=== PATIENT | female | born 1980 | race Caucasian/White ===

== ENCOUNTER 2020-07-01 15:50 | Inpatient (IN) | payer OTHER ==
[~2020-07-01] VITALS: Ht 167.6 cm; Wt 81.3 kg
[2020-07-01] MEDS ORDERED: ONDANSETRON HCL 4 MG/2 ML VIAL IVP PRN (17:15)
[2020-07-01] MEDS ORDERED: LORazepam 2 MG/ML VIAL IVP PRN (17:15)
[2020-07-01] MEDS ORDERED: ZOLPIDEM TARTRATE 5 MG TABLET PO PRN (17:15)
[2020-07-01] MEDS ORDERED: ACETAMINOPHEN 325 MG TABLET PO PRN (17:15)
[2020-07-01] MEDS ORDERED: SODIUM CHLORIDE 0.9% 1,000 ML IV ONE (17:30)
[2020-07-01 18:48] LABS: COVID AG,FIA SOURCE NASOPHARYNGEAL
[2020-07-01 18:57] VITALS: BP 156/95
[2020-07-01 19:52] LABS: BASOPHILS % (AUTO) 0.5 % (0.0-2.0); HEMATOCRIT 41.1 % (36-46); HEMOGLOBIN 13.5 g/dL (12.0-16.0); LYMPHOCYTES # (AUTO) 2.5 K/uL (1.0-4.8); LYMPHOCYTES % (AUTO) 28.4 % (22.0-44.0); MEAN CORPUSCULAR HEMOGLOBIN 25.6 pg (26.0-34.0); MEAN CORPUSCULAR HGB CONC 32.9 G/dL (31.0-37.0); MEAN CORPUSCULAR VOLUME 78 fL (80-100); MONOCYTES # (AUTO) 0.4 K/uL (0.1-1.0); MONOCYTES % (AUTO) 4.8 % (2.0-9.0); NEUTROPHILS # (AUTO) 5.7 K/uL (1.8-7.7); NEUTROPHILS % (AUTO) 65.3 % (40.0-70.0); PLATELET COUNT (AUTO) 398 K/uL (150-450); RED BLOOD CELL COUNT(AUTO) 5.27 MIL/uL (4.00-5.20); RED CELL DISTRIBUTION WIDTH 17.5 % (11.5-14.5)
[2020-07-01 19:53] VITALS: BP 170/99
[2020-07-01 19:59] LABS: ANION GAP 9 mmol/L (8-16); CALCIUM, TOTAL 8.6 mg/dL (8.8-10.5); CARBON DIOXIDE 27 mmol/L (22-29); CHLORIDE 103 mmol/L (98-107); CREATININE 0.74 mg/dL (0.60-1.30); GLOMERULAR FILTR. RATE CALC > 60 mL/min (>60); GLUCOSE,RANDOM 222 mg/dL (70-110); POTASSIUM 3.8 mmol/L (3.5-5.1); SODIUM SERUM 139 mmol/L (136-145); UREA NITROGEN, BLOOD 12 mg/dL (7-18)
[2020-07-01 20:11] LABS: ALANINE AMINOTRANSFERASE 21 U/L (12-78); ALBUMIN 3.7 g/dL (3.4-5.0); ALKALINE PHOSPHATASE 101 U/L (46-116); ASPARTATE AMINOTRANSFERASE 8 U/L (15-37); BILIRUBIN,TOTAL 0.4 mg/dL (0.1-1.0); HCG,QUANTITATIVE < 1 mIU/mL (0-6); TOTAL PROTEIN, SERUM 7.6 g/dL (6.4-8.2)
[2020-07-01] MEDS: DOCUSATE SODIUM 100 MG CAPSULE PO SCH (20:19)
[2020-07-01 21:05] VITALS: BP 149/95
[2020-07-01 22:43] VITALS: BP 148/87
[2020-07-02 03:46] LABS: AMPHET/METH SCREEN,URINE POSITIVE (NEGATIVE); BARBITURATE SCREEN, URINE NEGATIVE (NEGATIVE); BENZODIAZEPINES SCREEN,URINE NEGATIVE (NEGATIVE); CANNABINOID SCREEN,URINE NEGATIVE (NEGATIVE); COCAINE SCREEN,URINE NEGATIVE (NEGATIVE); METHADONE SCREEN, URINE NEGATIVE (NEGATIVE); OPIATE SCREEN,URINE NEGATIVE (NEGATIVE)
[2020-07-02 03:47] LABS: PHENCYCLIDINE SCREEN,URINE NEGATIVE (NEGATIVE)
[2020-07-02 05:26] VITALS: BP 147/90
[2020-07-02 08:24] VITALS: BP 142/90
[2020-07-02] MEDS: DOCUSATE SODIUM 100 MG CAPSULE PO SCH ×2 (08:34→20:19)
[2020-07-02] MEDS: FAMOTIDINE 20 MG TABLET PO SCH (08:34)
[2020-07-02] MEDS ORDERED: CloNIDine HCL 0.1 MG TABLET PO ONE (11:00)
[2020-07-02 11:08] VITALS: BP 133/85
[2020-07-02] MEDS: SERTRALINE HCL 50 MG TABLET PO SCH (14:33)
[2020-07-02 15:03] VITALS: BP 119/84
[2020-07-02 19:30] VITALS: BP 146/89
[2020-07-02] MEDS: CloNIDine HCL 0.1 MG TABLET PO SCH (20:19)
[2020-07-03] VITALS: BP 117/72
[2020-07-03 04:30] VITALS: BP 125/75
[2020-07-03 08:27] VITALS: BP 131/68
[2020-07-03] MEDS: FAMOTIDINE 20 MG TABLET PO SCH (08:38)
[2020-07-03] MEDS: SERTRALINE HCL 50 MG TABLET PO SCH (08:38)
[2020-07-03] MEDS: DOCUSATE SODIUM 100 MG CAPSULE PO SCH ×2 (08:38→20:32)
[2020-07-03] MEDS: CloNIDine HCL 0.1 MG TABLET PO SCH ×2 (08:38→20:32)
[2020-07-03] MEDS ORDERED: AMOX1TAB16 PO (13:57)
[2020-07-03] MEDS ORDERED: OLAN7.5T2 PO (13:58)
[2020-07-03] MEDS ORDERED: CITA-144 PO (13:58)
[2020-07-03 20:00] VITALS: BP 122/75
[2020-07-04 05:24] VITALS: BP 117/69
[2020-07-04 07:37] VITALS: BP 127/76
[2020-07-04] MEDS: CloNIDine HCL 0.1 MG TABLET PO SCH (08:51)
[2020-07-04] MEDS: SERTRALINE HCL 50 MG TABLET PO SCH (08:51)
[2020-07-04] MEDS: FAMOTIDINE 20 MG TABLET PO SCH (08:51)
[2020-07-04] MEDS: DOCUSATE SODIUM 100 MG CAPSULE PO SCH (08:51)
[2020-07-04 11:54] LABS: BASOPHILS % (AUTO) 0.4 % (0.0-2.0); EOSINOPHILS % (AUTO) 0.4 % (1.0-6.0); HEMOGLOBIN 12.8 g/dL (12.0-16.0); LYMPHOCYTES # (AUTO) 2.3 K/uL (1.0-4.8); LYMPHOCYTES % (AUTO) 21.9 % (22.0-44.0); MEAN CORPUSCULAR HGB CONC 32.1 G/dL (31.0-37.0); MEAN CORPUSCULAR VOLUME 78 fL (80-100); MONOCYTES # (AUTO) 0.3 K/uL (0.1-1.0); NEUTROPHILS # (AUTO) 7.9 K/uL (1.8-7.7); NEUTROPHILS % (AUTO) 74.3 % (40.0-70.0); PLATELET COUNT (AUTO) 398 K/uL (150-450); RED BLOOD CELL COUNT(AUTO) 5.12 MIL/uL (4.00-5.20)
[2020-07-04] MEDS ORDERED: CLON0.1T2 PO (11:55)
[2020-07-04] MEDS ORDERED: SERT-158 PO (11:56)
[2020-07-04 12:20] LABS: ANION GAP 9 mmol/L (8-16); CALCIUM, TOTAL 8.7 mg/dL (8.8-10.5); CARBON DIOXIDE 26 mmol/L (22-29); CHLORIDE 100 mmol/L (98-107); CREATININE 0.79 mg/dL (0.60-1.30); GLOMERULAR FILTR. RATE CALC > 60 mL/min (>60); GLUCOSE,RANDOM 352 mg/dL (70-110); POTASSIUM 4.5 mmol/L (3.5-5.1); SODIUM SERUM 135 mmol/L (136-145); UREA NITROGEN, BLOOD 18 mg/dL (7-18)
[2020-07-04 12:26] LABS: ALANINE AMINOTRANSFERASE 18 U/L (12-78); ALKALINE PHOSPHATASE 88 U/L (46-116); ASPARTATE AMINOTRANSFERASE 9 U/L (15-37); BILIRUBIN,TOTAL 0.2 mg/dL (0.1-1.0); TOTAL PROTEIN, SERUM 6.9 g/dL (6.4-8.2)
== END 2020-07-04 15:40 | DRG 885 ==
LOC: EMS 15:50 → 6S 17:11
PROVIDERS: ADMIT Internal Medicine; ATTEND Internal Medicine
DX: F33.2 Major depressive disorder, recurrent severe without psychotic features (principal); R45.851 Suicidal ideations; F15.10 Other stimulant abuse, uncomplicated; Z87.891 Personal history of nicotine dependence; F41.9 Anxiety disorder, unspecified; R73.9 Hyperglycemia, unspecified
CPT/HCPCS: 83036; 87426; 99285; G0480